=== PATIENT | female | born 1960 | race Caucasian/White ===

== ENCOUNTER 2017-01-12 11:28 | Emergency (ER) | payer OTHER ==
[2017-01-12 11:31] VITALS: BMI 34.7
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
[2017-01-12 12:31] VITALS: BP 137/80; PULSE 62; RESP 18; TEMP 98.4; O2SAT 96
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
== END 2017-01-12 13:48 | disposition home or self-care (01) ==
LOC: ED 11:28
DX: M79.622 Pain in left upper arm (principal); M25.522 Pain in left elbow; M25.562 Pain in left knee; V49.49XA Driver injured in collision with other motor vehicles in traffic accident, initial encounter; Y92.414 Local residential or business street as the place of occurrence of the external cause
CPT/HCPCS: 73060; 73080; 73562; 96372; 99284; J1885

== ENCOUNTER 2018-11-24 23:20 | Emergency (ER) | payer MEDICAID, OTHER ==
[2018-11-24 23:21] VITALS: BMI 34.7
[2018-11-24 23:40] VITALS: TEMP 98.3
--- NOTE | 2018-11-25 00:50 | ED PDOC ---
Arrival/HPI - General Historian: Patient - History of Present Illness Narrative History of Present Illness (Text): 11/25/18 01:10 58-year-old female presents today with right knee pain. Patient states she has been having right knee pain on and off for about 2 years. Patient states she was diagnosed with arthritis. Patient states she had some pain in the leg this morning and then after going to tenriism she developed worsening pain while jumping up and down during mass today. Patient states at times she has pain over the anterior aspect of the knee but the majority of the time she has pain over the posterior aspect of the right knee. She denies numbness weakness or tingling in the extremity. Patient states she took Motrin earlier today without improvement. She denies fevers or chills. No calf pain. No chest pain or shortness of breath. No other complaints <Laquita Mcneil - Last Filed: 11/25/18 00:44> <Lee Tomas - Last Filed: 11/25/18 02:29> - General Chief Complaint: Lower Extremity Problem/Injury Time Seen by Provider: 11/24/18 23:33 Past Medical History - Provider Review Nursing Documentation Reviewed: Yes - Travel History Have you recently traveled outside [place] w/in the past 3 mons?: No - Past History Past History: Non-Contributing - Infectious Disease Hx of Infectious Diseases: None - Cardiac Hx Hypotension: Yes - Psychiatric Hx Substance Use: No - Anesthesia Hx Anesthesia: No Hx Anesthesia Reactions: No Hx Malignant Hyperthermia: No <Laquita Mcneil - Last Filed: 11/25/18 00:44> Family/Social History - Physician Review Nursing Documentation Reviewed: Yes Family/Social History: Unknown Family HX Smoking Status: Never Smoked Hx Alcohol Use: No Hx Substance Use: No <Laquita Mcneil - Last Filed: 11/25/18 00:44> Allergies/Home Meds <Laquita Mcneil - Last Filed: 11/25/18 00:44> <Lee Tomas - Last Filed: 11/25/18 02:29> Allergies/Adverse Reactions: Allergies No Known Allergies Allergy (Verified 11/24/18 23:40) Home Medications: Home Meds Medication Instructions Recorded Confirmed Lisinopril [Zestril] 10 mg PO 01/12/17 Review of Systems - Review of Systems Constitutional: absent: Fatigue, Fevers Respiratory: absent: SOB, Cough Cardiovascular: absent: Chest Pain, Palpitations Gastrointestinal: absent: Abdominal Pain, Diarrhea, Vomiting Musculoskeletal: Arthralgias. absent: Back Pain, Neck Pain Skin: absent: Rash, Pruritis Neurological: absent: Headache, Dizziness Psychiatric: absent: Anxiety, Depression <Laquita Mcneil - Last Filed: 11/25/18 00:44> Physical Exam Vital Signs Reviewed: Yes Vital Signs Temp Pulse Resp BP Pulse Ox 11/24/18 23:38 98.3 F 89 16 141/82 97 Temperature: Afebrile Blood Pressure: Normal Pulse: Regular Respiratory Rate: Normal Appearance: Positive for: Well-Appearing, Non-Toxic, Comfortable Pain Distress: None Mental Status: Positive for: Alert and Oriented X 3 - Systems Exam Head: Present: Atraumatic Mouth: Present: Moist Mucous Membranes Neck: Present: Normal Range of Motion Respiratory/Chest: Present: Clear to Auscultation, Good Air Exchange. No: Respiratory Distress, Accessory Muscle Use Cardiovascular: Present: Regular Rate and Rhythm, Normal S1, S2. No: Murmurs Back: Present: Normal Inspection Lower Extremity: Present: NORMAL PULSES, Tenderness (Right knee: Tenderness noted over the anterior and posterior aspects of the right knee. There is minimal edema without obvious fluid collection. There is no erythema. No calf tenderness. Sensation and distal pulses are intact. Cap refill is less than 2), Swelling, Neurovascularly Intact, Capillary Refill < 2 s. No: CALF TENDERNESS, Normal ROM, Erythema Neurological: Present: GCS=15, Speech Normal Skin: Present: Warm, Dry, Normal Color. No: Rashes Psychiatric: Present: Alert, Oriented x 3 <Laquita Mcneil - Last Filed: 11/25/18 00:44> Vital Signs Temp Pulse Resp BP Pulse Ox 11/24/18 23:38 98.3 F 89 16 141/82 97 <Lee Tomas - Last Filed: 11/25/18 02:29> Medical Decision Making ED Course and Treatment: 11/25/18 01:12 Patient nontoxic well-appearing in no distress with stable vital signs X-rays of the knee: No fracture Venous duplex of the right lower extremity: no dvt Toradol IM tramadol Patient placed in knee immobilize Crutches given for ambulation I discussed all results with patient advised to followup with the orthopedist for the next 2 days. Return if symptoms worsen persist or new symptoms develop I advised the patient that although the xrays show no fracture; there is still a possibility for ligamentous or tendon injury the patient must see the orthopedist for further evaluation patient verbalizes understanding of discharge instructions and need for immediate followup. All aspects of this case were discussed the attending of record. Impression: knee pain Motrin every 6 hours as needed for pain tramadol 1 tablet every 8 hours as needed for moderate to severe pain: May cause drowsiness Rest, ice, compression, elevation Use crutches for ambulation Followup with the orthopedist within the next 2 days Followup with primary care physician within the next 2 days Return if symptoms worsen persist or if new symptoms develop - RAD Interpretation Radiology Orders: 11/25/18 00:20 KNEE W PATELLA RIGHT 3 VIEW [RAD] Stat DUPLEX LOWER EXTRM VEIN RIGHT [US] Stat - Medication Orders Current Medication Orders: Discontinued Medications Ketorolac Tromethamine (Toradol) 60 mg IM STAT STA Stop: 11/25/18 00:31 Last Admin: 11/25/18 00:39 Dose: 60 mg MAR Pain Assessment Document 11/25/18 00:39 CNR (Rec: 11/25/18 00:39 CNR [facility]-20) Pain Reassessment Is this a pain reassessment? No IM Administration Charges Document 11/25/18 00:39 CNR (Rec: 11/25/18 00:39 CNR [facility]-20) Injection Site MAR Injection Site Left Deltoid Charges for Administration # of IM Administrations 1 <Laquita Mcneil T - Last Filed: 11/25/18 00:44> - RAD Interpretation Radiology Orders: 11/25/18 00:20 KNEE W PATELLA RIGHT 3 VIEW [RAD] Stat DUPLEX LOWER EXTRM VEIN RIGHT [US] Stat - Medication Orders Current Medication Orders: Discontinued Medications Ketorolac Tromethamine (Toradol) 60 mg IM STAT STA Stop: 11/25/18 00:31 Last Admin: 11/25/18 00:39 Dose: 60 mg MAR Pain Assessment Document 11/25/18 00:39 CNR (Rec: 11/25/18 00:39 CNR [facility]-20) Pain Reassessment Is this a pain reassessment? No IM Administration Charges Document 11/25/18 00:39 CNR (Rec: 11/25/18 00:39 CNR [place] [id number]) Injection Site MAR Injection Site Left Deltoid Charges for Administration # of IM Administrations 1 Tramadol HCl (Ultram) 50 mg PO STAT STA Stop: 11/25/18 01:32 Last Admin: 11/25/18 01:55 Dose: 50 mg MAR Pain Assessment Document 11/25/18 01:55 CNR (Rec: 11/25/18 01:55 CNR [place] [id number]) Pain Reassessment Is this a pain reassessment? No <Lee Tomas - Last Filed: 11/25/18 02:29> - PA / CENTRIFUGAL SPINNER / Resident Statement / has reviewed & agrees with the documentation as recorded. <Lee Tomas - Last Filed: 11/25/18 02:29> Disposition/Present on Arrival - Present on Arrival Any Indicators Present on Arrival: No History of DVT/PE: No History of Uncontrolled Diabetes: No Urinary Catheter: No History of Decub. Ulcer: No History Surgical Site Infection Following: None - Disposition Have Diagnosis and Disposition been Completed?: Yes Disposition Time: 01:14 Patient Plan: Discharge <Laquita Mcneil - Last Filed: 11/25/18 00:44> <Lee Tomas - Last Filed: 11/25/18 02:29> - Disposition Diagnosis: Knee pain Disposition: HOME/ ROUTINE Patient Problems: Current Active Problems Problem Status Onset Knee pain Acute Condition: GOOD Discharge Instructions (ExitCare): Knee Pain (DC) Additional Instructions: Motrin every 6 hours as needed for pain tramadol 1 tablet every 8 hours as needed for moderate to severe pain: May cause drowsiness Rest, ice, compression, elevation Use crutches for ambulation Followup with the orthopedist within the next 2 days Followup with primary care physician within the next 2 days Return if symptoms worsen persist or if new symptoms develop Prescriptions: Ibuprofen [Motrin] 600 mg PO Q6H PRN #20 tab PRN Reason: pain/fever reduction traMADol [Ultram] 50 mg PO Q6H PRN #6 tab PRN Reason: moderate to severe pain Referrals: Sachi Mcgregor DO [Primary Care Provider] - Follow up with primary Dayami Underwood MD [Staff Provider] - Follow up with primary [facility] [Outside] - Follow up with primary [facility] [Outside] - Follow up with primary [facility] [place] [Outside] - Follow up with primary Forms: [employer] (Wolof), WORK NOTE
[2018-11-25 03:18] VITALS: BP 116/82; PULSE 88; RESP 14; O2SAT 100
--- NOTE | 2018-11-25 10:51 | RAD ---
Date of service: 11/25/2018 PROCEDURE: Right Knee Radiographs. HISTORY: knee pain COMPARISON: None. TECHNIQUE: Three views obtained. FINDINGS: BONES: Normal. No fracture. JOINTS: Normal. No osteoarthritis. JOINT EFFUSION: None. OTHER FINDINGS: None. IMPRESSION: Normal radiographs of the right knee.
--- NOTE | 2018-11-25 11:05 | US ---
PROCEDURE: Right lower extremity venous US HISTORY: Leg pain and swelling. Evaluate for DVT. PHYSICIAN(S): Shant Coleman M.D. TECHNIQUE: Duplex sonography and color-flow Doppler with graded compression were used to evaluate the deep venous system of the right lower extremity. FINDINGS: The visualized deep venous system of the right lower extremity is sonographically normal and compressible. Normal waveforms and augmentation are seen. There is no sonographic evidence for deep venous thrombosis in the visualized segments of the right lower extremity. IMPRESSION: 1. No sonographic evidence for deep venous thrombosis in the visualized segments of the right lower extremity.
== END 2018-11-25 02:10 | disposition home or self-care (01) ==
LOC: ED 23:20
DX: M25.561 Pain in right knee (principal)
CPT/HCPCS: 29530; 73562; 93971; 96372; 99284; J1885